=== PATIENT | male | born 1980 | race Two or more races ===

== ENCOUNTER 2024-02-23 12:22 | Inpatient (IN) | payer MEDICAID ==
[~2024-02-23] VITALS: Ht 182.9 cm; Wt 172.0 kg
[2024-02-23 16:07] LABS: Basophils # (auto) 0.1 10 ^3/uL (0-0.2); Eosinophils # (auto) 0.1 10 ^3/uL (0-0.8); Eosinophils % (auto) 0.9 % (0.0-7.0); Hematocrit 43.7 % (41.0-53.0); Hemoglobin 14.2 g/dL (13.5-17.5); Lymphocytes # (auto) 2.1 10 ^3/uL (0.4-5.4); Lymphocytes % (auto) 17.4 % (10.0-50.0); Mean Corpuscular Hemoglobin 25.9 pg (28.0-32.0); Mean Corpuscular Hgb Conc. 32.4 g/dL (32.0-36.0); Mean Corpuscular Volume 79.9 fL (80.0-100.0); Monocytes # (auto) 0.7 10 ^3/uL (0-1.3); Monocytes % (auto) 5.6 % (0.0-12.0); Neutrophils # (auto) 8.9 10 ^3/uL (1.6-8.6); Neutrophils % (auto) 75.1 % (37.0-80.0); Nucleated Red Blood Cells % 0.2 %; Red Blood Cells 5.47 10^6/uL (4.5-5.90); Red Cell Distribution Width 16.5 % (11.8-14.3); White Blood Cell 11.8 10^3/uL (4.4-10.8)
[2024-02-23] MEDS: cefTRIAXone SOD 1,000 MG VL IM ONE (16:59)
[2024-02-23] MEDS ORDERED: MORPHINE SULFATE INJ 2 MG/ml SYRG IV PRN (20:45)
[2024-02-23] MEDS ORDERED: DOCUSATE SOD 100 MG CAP PO PRN (20:45)
[2024-02-23] MEDS ORDERED: traZODone HCL 50 MG TAB PO PRN (20:45)
[2024-02-23] MEDS ORDERED: DEXTROSE (50%) 50ML SYRG IV PRN (20:45)
[2024-02-23] MEDS ORDERED: ONDANSETRON HCL 4 MG/2 ML VIAL IV PRN (20:45)
[2024-02-23] MEDS ORDERED: NITROGLYCERIN 0.4 MG SL TAB SL PRN (20:45)
[2024-02-23] MEDS ORDERED: SIMV40TA18 PO (20:47)
[2024-02-23] MEDS ORDERED: MELO7.5T7 PO (20:47)
[2024-02-23] MEDS ORDERED: PARO-135 PO (20:47)
[2024-02-23] MEDS ORDERED: PANT40T PO (20:47)
[2024-02-23] MEDS ORDERED: ENAL1TAB48 PO (20:47)
[2024-02-23] MEDS ORDERED: TRAZ-227 PO (20:47)
[2024-02-23] MEDS ORDERED: RISP4TAB53 PO (20:47)
[2024-02-24] VITALS (12 sets, daily range): BP systolic 111–150; BP diastolic 64–84; PULSE 69–88; RESP 16–20; TEMP 97.3–98.4; O2SAT 92–98
[2024-02-24] MEDS: risperiDONE 1 MG TAB PO SCH (00:36)
[2024-02-24] MEDS: ATORVASTATIN 20 MG TAB PO SCH (00:39)
[2024-02-24] MEDS: ENALAPRIL MALEATE 10 MG TAB PO ONE (00:39)
[2024-02-24] MEDS: ACCU-CHEK COMFORT CURVE STRIP VI SCH (00:42)
[2024-02-24] MEDS: InsuLIN REG 1unit/0.01ml Soln (100units/ml) SC SCH (00:42)
[2024-02-24] MEDS: VANCOMYCIN 1GM/200ML 200 ML IV ONE (01:01)
[2024-02-24] MEDS: ceFAZolin 1GM/50ML 50 ML IV SCH (02:03)
[2024-02-24 05:45] LABS: Basophils # (auto) 0.1 10 ^3/uL (0-0.2); Eosinophils # (auto) 0.1 10 ^3/uL (0-0.8); Hemoglobin 13.7 g/dL (13.5-17.5); Lymphocytes # (auto) 2.5 10 ^3/uL (0.4-5.4)
[2024-02-24 05:48] LABS: Basophils % (auto) 0.7 % (0.0-2.0); Eosinophils % (auto) 0.8 % (0.0-7.0); Hematocrit 42.1 % (41.0-53.0); Lymphocytes % (auto) 19.6 % (10.0-50.0); Mean Corpuscular Hemoglobin 26.1 pg (28.0-32.0); Mean Corpuscular Hgb Conc. 32.7 g/dL (32.0-36.0); Mean Corpuscular Volume 79.8 fL (80.0-100.0); Monocytes # (auto) 0.9 10 ^3/uL (0-1.3); Monocytes % (auto) 7.2 % (0.0-12.0); Neutrophils # (auto) 9.1 10 ^3/uL (1.6-8.6); Neutrophils % (auto) 71.7 % (37.0-80.0); Nucleated Red Blood Cells % 0.1 %; Red Blood Cells 5.27 10^6/uL (4.5-5.90); Red Cell Distribution Width 16.5 % (11.8-14.3); White Blood Cell 12.7 10^3/uL (4.4-10.8)
[2024-02-24 05:50] LABS: Alanine Aminotransferase 17 U/L (7-40); Albumin 4.5 g/dL (3.2-4.8); Alkaline Phosphatase 63 U/L (46-116); Anion Gap 8 (5-15); Aspartate Aminotransferase 14 U/L (13-40); BUN/Creatinine Ratio 9.4 (10.0-20.0); Bilirubin, Total 0.4 mg/dL (0.2-1.0); Blood Urea Nitrogen 8 mg/dL (9-23); Calcium 10.5 mg/dL (8.7-10.4); Carbon Dioxide 26 mmol/L (20-30); Chloride 104 mmol/L (98-107); Glucose 100 mg/dL (74-106); Potassium 3.7 mmol/L (3.5-5.1); Sodium 138 mmol/L (136-145); Total Protein 7.5 g/dL (5.7-8.2)
[2024-02-24] MEDS: MELOXICAM 7.5 MG PO SCH (10:00)
[2024-02-24] MEDS: PANTOPRAZOLE 40 MG TAB PO SCH (10:32)
[2024-02-24] MEDS: PARoxetine 20 MG TAB PO SCH (10:32)
[2024-02-24] MEDS: ENALAPRIL MALEATE 10 MG TAB PO SCH (10:35)
[2024-02-24] MEDS: ACETAMINOPHEN 325 MG TAB PO PRN (21:40)
[2024-02-25 02:48] VITALS: PULSE 82; O2SAT 97
[2024-02-25 03:52] VITALS: PULSE 68; O2SAT 95
[2024-02-25 05:00] VITALS: BP 113/66; PULSE 63; RESP 20; TEMP 98.1; O2SAT 96
[2024-02-25 09:00] VITALS: BP 122/82; PULSE 63; RESP 18; TEMP 97.8; O2SAT 90
[2024-02-25] MEDS ORDERED: CLIN1CAP70 PO (09:25)
[2024-02-25] MEDS ORDERED: HYDR-4902 PO (09:25)
[2024-02-25 13:22] VITALS: BP 129/73; PULSE 78; RESP 20; TEMP 97.7; O2SAT 94
== END 2024-02-25 15:00 | disposition home or self-care (01) | DRG 351 ==
LOC: ER 12:22 → OVERFLOW 20:40 → CENTRAL 02-24 03:00
PROVIDERS: ADMIT Nurse Practitioner Family; ATTEND Family Medicine
PROC: 5A09357 Assistance with Respiratory Ventilation, Less than 24 Consecutive Hours, Continuous Positive Airway Pressure (ICD-10-PCS; principal; 2024-02-24)
DX: S91.201A Unspecified open wound of right great toe with damage to nail, initial encounter (principal); K76.0 Fatty (change of) liver, not elsewhere classified; E11.65 Type 2 diabetes mellitus with hyperglycemia; S99.921A Unspecified injury of right foot, initial encounter; F20.9 Schizophrenia, unspecified; F31.9 Bipolar disorder, unspecified; I10 Essential (primary) hypertension; G47.30 Sleep apnea, unspecified; S90.212A Contusion of left great toe with damage to nail, initial encounter; X58.XXXA Exposure to other specified factors, initial encounter; Z88.8 Allergy status to other drugs, medicaments and biological substances; Z80.6 Family history of leukemia; Z80.0 Family history of malignant neoplasm of digestive organs; Y93.89 Activity, other specified; Y92.89 Other specified places as the place of occurrence of the external cause; Y99.8 Other external cause status
CPT/HCPCS: 36415; 73700; 80053; 82962; 85025; 87040; 93005; 94660; 96372; G0378; J0696

== ENCOUNTER → 2024-07-27 | Outpatient (CLI) | payer MEDICAID ==
[~2024-07-27] MED LIST: CLIN1CAP70 PO; ENAL1TAB48 PO; HYDR-4902 PO; MELO7.5T7 PO; PANT40T PO; PARO-135 PO; RISP4TAB53 PO; SIMV40TA18 PO; TRAZ-227 PO
[2024-07-27 09:46] LABS: Urine Bacteria None Seen /hpf (None Seen); Urine WBC None Seen /hpf (0 - 3)
[2024-07-27 10:00] LABS: Basophils # (auto) 0.1 10 ^3/uL (0-0.2); Basophils % (auto) 0.8 % (0.0-2.0); Hemoglobin 13.7 g/dL (13.5-17.5); Mean Corpuscular Hemoglobin 26.8 pg (28.0-32.0); Monocytes # (auto) 0.5 10 ^3/uL (0-1.3)
[2024-07-27 10:03] LABS: Eosinophils # (auto) 0.1 10 ^3/uL (0-0.8); Eosinophils % (auto) 1.6 % (0.0-7.0); Hematocrit 41.3 % (41.0-53.0); Lymphocytes # (auto) 1.9 10 ^3/uL (0.4-5.4); Lymphocytes % (auto) 21.1 % (10.0-50.0); Mean Corpuscular Hgb Conc. 33.1 g/dL (32.0-36.0); Monocytes % (auto) 5.6 % (0.0-12.0); Neutrophils # (auto) 6.4 10 ^3/uL (1.6-8.6); Neutrophils % (auto) 70.9 % (37.0-80.0); Nucleated Red Blood Cells % 0.2 %; Platelet Count (auto) 268 10^3/uL (140-450)
[2024-07-27 10:04] LABS: Urine Blood Negative /uL (Negative); Urine Clarity Clear (Clear); Urine Color Colorless (Yellow); Urine Protein, UAD Negative (Negative); Urine Specific Gravity 1.002 (1.001-1.035); Urine Urobilinogen Normal (Negative)
[2024-07-27 10:38] LABS: Alanine Aminotransferase 21 U/L (7-40); Albumin 4.7 g/dL (3.2-4.8); Alkaline Phosphatase 63 U/L (46-116); Anion Gap 7 (5-15); Aspartate Aminotransferase 15 U/L (13-40); BUN/Creatinine Ratio 7.6 (10.0-20.0); Blood Urea Nitrogen 7 mg/dL (9-23); Calcium 10.1 mg/dL (8.7-10.4); Carbon Dioxide 27 mmol/L (20-30); Chloride 103 mmol/L (98-107); Glucose 91 mg/dL (74-106); Sodium 137 mmol/L (136-145)
[2024-07-27 10:39] LABS: Bilirubin, Total 0.4 mg/dL (0.2-1.0); Total Protein 7.4 g/dL (5.7-8.2)
[2024-07-27 13:05] LABS: Triglycerides 201 mg/dL (< 150)
[2024-07-27 13:06] LABS: Cholesterol 142 mg/dL (< 200); LDL Cholesterol 71 mg/dL (< 100)
[2024-07-27 13:07] LABS: HDL Cholesterol 38 mg/dL (40-59)
[2024-07-27 13:08] LABS: Creatinine, Urine 17.12 mg/dL (30.0-125.0)
[2024-07-27 13:11] LABS: Micro Albumin < 3.0 mg/L (<30.0)
[2024-07-27 13:14] LABS: Microalb/Creat Ratio, Urine < 17.00
== END | disposition home or self-care (01) ==
LOC: LAB 09:30
PROVIDERS: ATTEND Internal Medicine
DX: Z00.01 Encounter for general adult medical examination with abnormal findings (principal); I10 Essential (primary) hypertension; E11.69 Type 2 diabetes mellitus with other specified complication; E66.01 Morbid (severe) obesity due to excess calories; E78.5 Hyperlipidemia, unspecified
CPT/HCPCS: 36415; 80053; 80061; 81001; 82043; 82570; 83036; 84439; 84443; 85025